=== PATIENT | female | born 1990 | race Caucasian/White ===

== ENCOUNTER 2016-08-11 10:41 | Emergency (ER) | payer OTHER ==
[~2016-08-11] VITALS: Ht 182.9 cm; Wt 82.3 kg
[2016-08-11] MEDS ORDERED: AMPH30CA3 PO (10:49)
[2016-08-11] MEDS ORDERED: PERTUSS(ACELL),DIPH,TET VAC/PF 0.5 ML VIAL IM ONE (12:15)
[2016-08-11] MEDS ORDERED: MUPIROCIN CALCIUM 2% 22 GM OINTMENT TP ONE (12:15)
[2016-08-11] MEDS ORDERED: OxyCODONE HCL/ACETAMINOPHEN 5-325 MG TABLET PO ONE (13:00)
[2016-08-11 13:42] VITALS: BP 139/69
== END 2016-08-11 13:45 | disposition home or self-care (01) ==
LOC: EMS 10:42
DX: L03.114 Cellulitis of left upper limb (principal); L01.00 Impetigo, unspecified; F17.210 Nicotine dependence, cigarettes, uncomplicated; F15.90 Other stimulant use, unspecified, uncomplicated; Z91.018 Allergy to other foods; Z91.040 Latex allergy status; Z88.8 Allergy status to other drugs, medicaments and biological substances; Z88.6 Allergy status to analgesic agent; Z88.2 Allergy status to sulfonamides
CPT/HCPCS: 87070; 87205; 90471; 90715; 99283; 99284

== ENCOUNTER 2016-12-08 14:19 | Emergency (ER) | payer OTHER ==
[~2016-12-08] VITALS: Ht 180.3 cm; Wt 70.9 kg
[~2016-12-08 14:19] MED LIST: AMPH30CA3 PO
[2016-12-08] MEDS ORDERED: MULT-1192 PO (14:32)
[2016-12-08] MEDS ORDERED: OxyCODONE HCL/ACETAMINOPHEN 5-325 MG TABLET PO ONE (15:00)
[2016-12-08 16:21] LABS: APPEARANCE,URINE CLEAR (CLEAR); GLUCOSE, URINE (UA) NEGATIVE (NEGATIVE); KETONES,URINE NEGATIVE (NEGATIVE); LEUKOCYTE ESTERASE ,URINE NEGATIVE (NEGATIVE); OCCULT BLOOD,URINE MODERATE (NEGATIVE); PROTEIN,URINE NEGATIVE (NEGATIVE)
[2016-12-08 16:46] LABS: ADD UA MICROSCOPIC YES
[2016-12-08 16:50] LABS: WBC,URINE 0-2 /HPF (0-5)
[2016-12-08] MEDS ORDERED: LIDOCAINE HCL BUFFERED 1% 20 ML VIAL INJ ONE (17:30)
[2016-12-08 18:30] VITALS: BP 134/73
== END 2016-12-08 18:36 | disposition home or self-care (01) ==
LOC: EMS 14:21
DX: S91.312A Laceration without foreign body, left foot, initial encounter (principal); F17.210 Nicotine dependence, cigarettes, uncomplicated; F15.90 Other stimulant use, unspecified, uncomplicated; Z88.6 Allergy status to analgesic agent; Z88.1 Allergy status to other antibiotic agents; Z91.040 Latex allergy status; Z88.5 Allergy status to narcotic agent; Z88.2 Allergy status to sulfonamides; Z91.018 Allergy to other foods; Y04.2XXA Assault by strike against or bumped into by another person, initial encounter; Y93.89 Activity, other specified; Y92.89 Other specified places as the place of occurrence of the external cause; Y99.8 Other external cause status
CPT/HCPCS: 12002; 73610; 73630; 81001; 99285; J3490

== ENCOUNTER 2016-12-09 08:40 | Inpatient (IN) | payer OTHER ==
[~2016-12-09] VITALS: Ht 180.3 cm; Wt 69.1 kg
[~2016-12-09 08:40] MED LIST changes: +MULT-1192 PO
[2016-12-09] MEDS ORDERED: VANCOMYCIN HCL 1 GM/D5% WATER 200 ML IV ONE (09:15)
[2016-12-09] MEDS ORDERED: MORPHINE SULFATE 4 MG/ML SYRINGE IVP ONE (09:15)
[2016-12-09 09:27] LABS: BASOPHILS # (AUTO) 0.07 K/uL (0.00-0.20); BASOPHILS % (AUTO) 0.4 % (0.0-2.0); EOSINOPHILS # (AUTO) 0.01 K/uL (0.00-0.70); EOSINOPHILS % (AUTO) 0.08 % (1.0-6.0); HEMATOCRIT 38.1 % (36-46); HEMOGLOBIN 12.1 g/dL (12.0-16.0); LYMPHOCYTES # (AUTO) 0.7 K/uL (1.0-4.8); LYMPHOCYTES % (AUTO) 4.7 % (22.0-44.0); MEAN CORPUSCULAR HEMOGLOBIN 24.5 pg (26.0-34.0); MEAN CORPUSCULAR HGB CONC 31.8 G/dL (31.0-37.0); MEAN CORPUSCULAR VOLUME 77 fL (80-100); MONOCYTES # (AUTO) 0.8 K/uL (0.1-1.0); MONOCYTES % (AUTO) 4.9 % (2.0-9.0); NEUTROPHILS # (AUTO) 13.8 K/uL (1.8-7.7); PLATELET COUNT (AUTO) 260 K/uL (150-450); RED BLOOD CELL COUNT(AUTO) 4.95 MIL/uL (4.00-5.20); RED CELL DISTRIBUTION WIDTH 14.7 % (11.5-14.5); WHITE BLOOD COUNT (AUTO) 15.3 K/uL (4.5-11.0)
[2016-12-09 09:28] LABS: NEUTROPHILS % (AUTO) 89.9 % (40.0-70.0); RBC MORPHOLOGY COMMENT ABNORMAL RBC MORPH
[2016-12-09] MEDS ORDERED: SODIUM CHLORIDE 0.9% 100 ML ONE (09:32)
[2016-12-09] MEDS ORDERED: IOVERSOL 350 MG/ML 100 ML VIAL ONE (09:32)
[2016-12-09 09:38] LABS: ANION GAP 11 mmol/L (8-16); CALCIUM, TOTAL 8.9 mg/dL (8.8-10.5); CARBON DIOXIDE 24 mmol/L (22-29); CHLORIDE 100 mmol/L (98-107); CREATININE 0.71 mg/dL (0.60-1.30); GLOMERULAR FILTR. RATE CALC > 60 mL/min (>60); POTASSIUM 3.7 mmol/L (3.5-5.1); SODIUM SERUM 135 mmol/L (136-145); UREA NITROGEN, BLOOD 12 mg/dL (7-18)
[2016-12-09 09:45] LABS: ALANINE AMINOTRANSFERASE 24 U/L (12-78); ALBUMIN 3.8 g/dL (3.4-5.0); ASPARTATE AMINOTRANSFERASE 11 U/L (15-37)
[2016-12-09 09:56] LABS: BILIRUBIN,TOTAL 0.5 mg/dL (0.1-1.0)
[2016-12-09] MEDS: ONDANSETRON HCL 4 MG/2 ML VIAL IVP PRN ×2 (10:10→14:54)
[2016-12-09] MEDS ORDERED: MORPHINE SULFATE 4 MG/ML SYRINGE IVP PRN (10:15)
[2016-12-09 10:52] VITALS: BP 119/65
[2016-12-09] MEDS ORDERED: ONDANSETRON HCL 4 MG/2 ML VIAL IVP PRN (11:00)
[2016-12-09] MEDS ORDERED: MAGNESIUM HYDROXIDE SUSPENSION 30 ML UDCUP PO PRN (11:00)
[2016-12-09 14:51] VITALS: BP 130/81
[2016-12-09] MEDS: MORPHINE SULFATE 2 MG/ML SYRINGE IVP PRN ×3 (14:53→23:56)
[2016-12-09] MEDS: HEPARIN SODIUM,PORCINE 5,000 UNITS/ML VIAL SQ SCH (15:40)
[2016-12-09] MEDS: VANCOMYCIN HCL 1 GM/D5% WATER 200 ML IV SCH (15:41)
[2016-12-09] MEDS: DOCUSATE SODIUM 100 MG CAPSULE PO SCH (20:56)
[2016-12-09 21:02] VITALS: BP 114/59
[2016-12-09 22:15] LABS: APPEARANCE,URINE CLEAR (CLEAR); GLUCOSE, URINE (UA) NEGATIVE (NEGATIVE); KETONES,URINE NEGATIVE (NEGATIVE); OCCULT BLOOD,URINE NEGATIVE (NEGATIVE); PROTEIN,URINE NEGATIVE (NEGATIVE)
[2016-12-09 22:16] LABS: ADD UA MICROSCOPIC NO; LEUKOCYTE ESTERASE ,URINE NEGATIVE (NEGATIVE)
[2016-12-09] MEDS ORDERED: SODIUM CHLORIDE 0.9% 500 ML IV ONE (22:22)
[2016-12-09] MEDS ORDERED: 0.9% SODIUM CHLORIDE 10 ML SYRINGE IVP PRN (23:15)
[2016-12-09 23:23] VITALS: BP 113/69
[2016-12-10] MEDS: VANCOMYCIN HCL 1 GM/D5% WATER 200 ML IV SCH ×3 (00:01→15:59)
[2016-12-10] MEDS: MORPHINE SULFATE 2 MG/ML SYRINGE IVP PRN ×5 (04:43→20:32)
[2016-12-10 05:24] VITALS: BP 124/67
[2016-12-10 06:31] LABS: BASOPHILS # (AUTO) 0.09 K/uL (0.00-0.20); BASOPHILS % (AUTO) 0.9 % (0.0-2.0); EOSINOPHILS # (AUTO) 0.04 K/uL (0.00-0.70); EOSINOPHILS % (AUTO) 0.34 % (1.0-6.0); HEMATOCRIT 33.4 % (36-46); HEMOGLOBIN 10.9 g/dL (12.0-16.0); LYMPHOCYTES # (AUTO) 1.5 K/uL (1.0-4.8); LYMPHOCYTES % (AUTO) 14.8 % (22.0-44.0); MEAN CORPUSCULAR HEMOGLOBIN 24.7 pg (26.0-34.0); MEAN CORPUSCULAR HGB CONC 32.7 G/dL (31.0-37.0); MEAN CORPUSCULAR VOLUME 76 fL (80-100); MONOCYTES # (AUTO) 0.9 K/uL (0.1-1.0); MONOCYTES % (AUTO) 8.9 % (2.0-9.0); NEUTROPHILS # (AUTO) 7.8 K/uL (1.8-7.7); NEUTROPHILS % (AUTO) 75.1 % (40.0-70.0); PLATELET COUNT (AUTO) 229 K/uL (150-450); RED BLOOD CELL COUNT(AUTO) 4.42 MIL/uL (4.00-5.20); RED CELL DISTRIBUTION WIDTH 14.3 % (11.5-14.5); WHITE BLOOD COUNT (AUTO) 10.4 K/uL (4.5-11.0)
[2016-12-10 06:40] LABS: ANION GAP 6 mmol/L (8-16); CALCIUM, TOTAL 8.4 mg/dL (8.8-10.5); CARBON DIOXIDE 28 mmol/L (22-29); CHLORIDE 102 mmol/L (98-107); CREATININE 0.57 mg/dL (0.60-1.30); GLOMERULAR FILTR. RATE CALC > 60 mL/min (>60); POTASSIUM 3.7 mmol/L (3.5-5.1); SODIUM SERUM 136 mmol/L (136-145); UREA NITROGEN, BLOOD 6 mg/dL (7-18)
[2016-12-10 08:00] VITALS: BP 117/72
[2016-12-10] MEDS: DOCUSATE SODIUM 100 MG CAPSULE PO SCH ×2 (08:19→21:00)
[2016-12-10] MEDS: PANTOPRAZOLE SODIUM 40 MG DR TABLET PO SCH (08:20)
[2016-12-10] MEDS: HEPARIN SODIUM,PORCINE 5,000 UNITS/ML VIAL SQ SCH ×3 (08:20→15:59)
[2016-12-10 11:38] VITALS: BP 104/57
[2016-12-10 16:54] VITALS: BP 124/63
[2016-12-10 20:24] VITALS: BP 114/69
[2016-12-10 23:20] VITALS: BP 121/63
[2016-12-10] MEDS ORDERED: SODIUM CHLORIDE 0.9% 250 ML IV ONE (23:48)
[2016-12-11] MEDS: VANCOMYCIN HCL 1 GM/D5% WATER 200 ML IV SCH (00:26)
[2016-12-11] MEDS: HEPARIN SODIUM,PORCINE 5,000 UNITS/ML VIAL SQ SCH ×4 (00:26→23:08)
[2016-12-11] MEDS: MORPHINE SULFATE 2 MG/ML SYRINGE IVP PRN ×6 (00:27→21:38)
[2016-12-11 04:22] VITALS: BP 122/65
[2016-12-11 07:02] LABS: ANION GAP 6 mmol/L (8-16); CALCIUM, TOTAL 8.3 mg/dL (8.8-10.5); CARBON DIOXIDE 28 mmol/L (22-29); CHLORIDE 103 mmol/L (98-107); CREATININE 0.59 mg/dL (0.60-1.30); GLOMERULAR FILTR. RATE CALC > 60 mL/min (>60); POTASSIUM 3.9 mmol/L (3.5-5.1); SODIUM SERUM 137 mmol/L (136-145); UREA NITROGEN, BLOOD 9 mg/dL (7-18)
[2016-12-11 07:48] VITALS: BP 121/70
[2016-12-11] MEDS: VANCOMYCIN HCL 1.5 GM in DEXTROSE 5%-WATER 250 ML IV SCH ×3 (08:50→23:08)
[2016-12-11] MEDS: DOCUSATE SODIUM 100 MG CAPSULE PO SCH ×2 (08:51→20:21)
[2016-12-11] MEDS: PANTOPRAZOLE SODIUM 40 MG DR TABLET PO SCH (08:51)
[2016-12-11 12:14] VITALS: BP 127/72
[2016-12-11 20:00] VITALS: BP 121/67
[2016-12-11 23:06] VITALS: BP 120/70
[2016-12-12] MEDS: MORPHINE SULFATE 2 MG/ML SYRINGE IVP PRN ×6 (01:52→22:59)
[2016-12-12 04:00] VITALS: BP 110/56
[2016-12-12 05:34] VITALS: BP 110/56
[2016-12-12 06:55] LABS: ANION GAP 9 mmol/L (8-16); CALCIUM, TOTAL 8.5 mg/dL (8.8-10.5); CARBON DIOXIDE 27 mmol/L (22-29); CHLORIDE 102 mmol/L (98-107); CREATININE 0.55 mg/dL (0.60-1.30); GLOMERULAR FILTR. RATE CALC > 60 mL/min (>60); SODIUM SERUM 138 mmol/L (136-145); UREA NITROGEN, BLOOD 13 mg/dL (7-18)
[2016-12-12 07:17] VITALS: BP 116/70
[2016-12-12] MEDS: VANCOMYCIN HCL 1.5 GM in DEXTROSE 5%-WATER 250 ML IV SCH ×3 (08:05→22:59)
[2016-12-12] MEDS: HEPARIN SODIUM,PORCINE 5,000 UNITS/ML VIAL SQ SCH ×3 (08:06→22:59)
[2016-12-12] MEDS: PANTOPRAZOLE SODIUM 40 MG DR TABLET PO SCH (08:06)
[2016-12-12] MEDS: DOCUSATE SODIUM 100 MG CAPSULE PO SCH ×3 (08:06→20:03)
[2016-12-12 12:46] VITALS: BP 112/64
[2016-12-12] MEDS: PIPERACILLIN/TAZO 3.375 GM/D5W 50 ML IV SCH ×2 (15:33→20:03)
[2016-12-12 15:44] VITALS: BP 110/59
[2016-12-12 20:10] VITALS: BP 103/61
[2016-12-13] MEDS: PIPERACILLIN/TAZO 3.375 GM/D5W 50 ML IV SCH ×2 (03:01→08:29)
[2016-12-13 04:13] VITALS: BP 99/54
[2016-12-13] MEDS: MORPHINE SULFATE 2 MG/ML SYRINGE IVP PRN ×3 (04:22→12:54)
[2016-12-13 06:50] LABS: BASOPHILS # (AUTO) 0.04 K/uL (0.00-0.20); BASOPHILS % (AUTO) 0.8 % (0.0-2.0); EOSINOPHILS # (AUTO) 0.14 K/uL (0.00-0.70); HEMOGLOBIN 10.4 g/dL (12.0-16.0); LYMPHOCYTES # (AUTO) 1.6 K/uL (1.0-4.8); LYMPHOCYTES % (AUTO) 29.3 % (22.0-44.0); MEAN CORPUSCULAR HGB CONC 32.6 G/dL (31.0-37.0); MEAN CORPUSCULAR VOLUME 77 fL (80-100); MONOCYTES # (AUTO) 0.4 K/uL (0.1-1.0); NEUTROPHILS # (AUTO) 3.4 K/uL (1.8-7.7); NEUTROPHILS % (AUTO) 60.4 % (40.0-70.0); PLATELET COUNT (AUTO) 276 K/uL (150-450); RED BLOOD CELL COUNT(AUTO) 4.17 MIL/uL (4.00-5.20); RED CELL DISTRIBUTION WIDTH 14.9 % (11.5-14.5); WHITE BLOOD COUNT (AUTO) 5.6 K/uL (4.5-11.0)
[2016-12-13 07:17] LABS: ANION GAP 12 mmol/L (8-16); CALCIUM, TOTAL 8.4 mg/dL (8.8-10.5); CARBON DIOXIDE 25 mmol/L (22-29); CHLORIDE 103 mmol/L (98-107); CREATININE 0.74 mg/dL (0.60-1.30); GLOMERULAR FILTR. RATE CALC > 60 mL/min (>60); POTASSIUM 4.2 mmol/L (3.5-5.1); SODIUM SERUM 140 mmol/L (136-145); UREA NITROGEN, BLOOD 13 mg/dL (7-18)
[2016-12-13] MEDS: PANTOPRAZOLE SODIUM 40 MG DR TABLET PO SCH (08:29)
[2016-12-13 08:30] VITALS: BP 123/66
[2016-12-13] MEDS: HEPARIN SODIUM,PORCINE 5,000 UNITS/ML VIAL SQ SCH (08:30)
[2016-12-13] MEDS: DOCUSATE SODIUM 100 MG CAPSULE PO SCH (08:30)
[2016-12-13] MEDS: VANCOMYCIN HCL 1.5 GM in DEXTROSE 5%-WATER 250 ML IV SCH (09:32)
[2016-12-13] MEDS ORDERED: CLIN300C3 PO (10:19)
[2016-12-13] MEDS ORDERED: RIVA20TA PO (10:19)
[2016-12-13 14:31] LABS: RBC MORPHOLOGY COMMENT ABNORMAL RBC MORPH
== END 2016-12-13 13:33 | disposition home or self-care (01) | DRG 383 ==
LOC: EMS 08:41 → AHU 09:59 → 6N 16:42
PROVIDERS: ADMIT Internal Medicine; ATTEND Internal Medicine
DX: L03.116 Cellulitis of left lower limb (principal); E66.9 Obesity, unspecified; Z98.84 Bariatric surgery status; F17.210 Nicotine dependence, cigarettes, uncomplicated; Z88.6 Allergy status to analgesic agent; Z88.1 Allergy status to other antibiotic agents; Z91.040 Latex allergy status; Z88.5 Allergy status to narcotic agent; Z91.018 Allergy to other foods; Z79.899 Other long term (current) drug therapy; Z91.410 Personal history of adult physical and sexual abuse; Z87.19 Personal history of other diseases of the digestive system; Z68.21 Body mass index [BMI] 21.0-21.9, adult; Y83.8 Other surgical procedures as the cause of abnormal reaction of the patient, or of later complication, without mention of misadventure at the time of the procedure; Y92.89 Other specified places as the place of occurrence of the external cause; Y93.89 Activity, other specified; Y99.8 Other external cause status
CPT/HCPCS: 73701; 87040; 96365; 96375; 99285; J1644; J2270; J2405; J2543; J3370; J7040; J7050; J7060

== ENCOUNTER 2020-11-04 19:33 | Emergency (ER) | payer OTHER ==
[~2020-11-04] VITALS: Ht 180.3 cm; Wt 81.8 kg
[~2020-11-04 19:33] MED LIST changes: -AMPH30CA3 PO; +CLIN300C3 PO; +RIVA20TA PO
[2020-11-04] MEDS ORDERED: ACETAMINOPHEN 500 MG TABLET PO ONE (20:15)
[2020-11-04 20:34] LABS: HEMATOCRIT 31.9 % (36-46); HEMOGLOBIN 9.8 g/dL (12.0-16.0); LYMPHOCYTES % (AUTO) 32.4 % (22.0-44.0); MEAN CORPUSCULAR HEMOGLOBIN 21.7 pg (26.0-34.0); MEAN CORPUSCULAR HGB CONC 30.8 G/dL (31.0-37.0); MEAN CORPUSCULAR VOLUME 70 fL (80-100); MONOCYTES # (AUTO) 0.6 K/uL (0.1-1.0); MONOCYTES % (AUTO) 10.1 % (2.0-9.0); NEUTROPHILS # (AUTO) 3.2 K/uL (1.8-7.7); NEUTROPHILS % (AUTO) 51.5 % (40.0-70.0); PLATELET COUNT (AUTO) 301 K/uL (150-450); RED BLOOD CELL COUNT(AUTO) 4.53 MIL/uL (4.00-5.20)
[2020-11-04 20:44] LABS: ANION GAP 14 mmol/L (8-16); CALCIUM, TOTAL 8.9 mg/dL (8.8-10.5); CARBON DIOXIDE 24 mmol/L (22-29); CHLORIDE 105 mmol/L (98-107); CREATININE 0.68 mg/dL (0.60-1.30); GLOMERULAR FILTR. RATE CALC > 60 mL/min (>60); GLUCOSE,RANDOM 63 mg/dL (70-110); POTASSIUM 3.5 mmol/L (3.5-5.1); SODIUM SERUM 143 mmol/L (136-145); UREA NITROGEN, BLOOD 12 mg/dL (7-18)
[2020-11-04 20:55] LABS: ALANINE AMINOTRANSFERASE 27 U/L (12-78); ALBUMIN 3.9 g/dL (3.4-5.0); ALKALINE PHOSPHATASE 103 U/L (46-116); ASPARTATE AMINOTRANSFERASE 18 U/L (15-37); BILIRUBIN,TOTAL 0.2 mg/dL (0.1-1.0); HCG,QUANTITATIVE < 1 mIU/mL (0-6); TOTAL PROTEIN, SERUM 7.6 g/dL (6.4-8.2)
[2020-11-04 21:09] VITALS: BP 109/80
== END 2020-11-04 21:22 | disposition home or self-care (01) ==
LOC: EMS 19:37
DX: J40 Bronchitis, not specified as acute or chronic (principal); R07.89 Other chest pain
CPT/HCPCS: 85379; 93005; 99285; 36415-L1; 36415-TC; 71045-TC